=== PATIENT | female | born 1935 | race Caucasian/White ===

== ENCOUNTER → 2016-05-10 | Outpatient (CLI) | payer MEDICARE, OTHER ==
--- NOTE | 2016-05-11 09:26 | XR ---
EXAMINATION TYPE: XR chest 2V DATE OF EXAM: 05/10/2016 10:09 AM COMPARISON: NONE TECHNIQUE: PA and lateral views submitted. HISTORY: Cough FINDINGS: Heart size is prominent. Somewhat coarsened interstitium appears chronic. Mild hypertrophic change of the spine. No acute infiltrate or pneumothorax. Apical pleural thickening noted. Linear density righ t perihilar region likely related atelectasis or scar. IMPRESSION: 1. Correlate for mild chronic interstitial lung disease. Follow up CT scan recommended.
== END ==
LOC: RADXRYALE 09:47
PROVIDERS: ATTEND Physician Assistant Medical
DX: R05 Cough (principal)
CPT/HCPCS: 71020